=== PATIENT | female | born 1955 | race Caucasian/White ===

== ENCOUNTER 2024-10-27 02:43 | Emergency (ER) | payer OTHER ==
[~2024-10-27] VITALS: Ht 177.8 cm; Wt 111.1 kg
[2024-10-27] MEDS: ketOROlac 15MG/ML VIAL (15MG/ML) IV ONE (03:25)
[2024-10-27] MEDS: LACTATED RINGERS 1000ML 1,000 ML IV ONE (03:26)
[2024-10-27 03:28] LABS: BASOPHILS # (AUTO) 0.02 K/uL (0.00-0.20); BASOPHILS % (AUTO) 0.1 % (0.0-5.0); HEMATOCRIT 36.7 % (36-48); IMMATURE GRANULOCYTE ABSOLUTE 0.13 K/uL (0-1); LYMPHOCYTES % (AUTO) 6.4 % (21.0-51.0); MEAN CORPUSCULAR HEMOGLOBIN 30.3 pg (27.0-33.0); MEAN CORPUSCULAR HGB CONC 34.3 g/dL (32.0-36.0); MEAN CORPUSCULAR VOLUME 88.2 fL (79-99); MONOCYTES # (AUTO) 0.7 K/uL (0.1-1.0); MONOCYTES % (AUTO) 4.4 % (3.0-13.0); NEUTROPHILS % (AUTO) 88.3 % (40.0-77.0); PLATELET COUNT (AUTO) 289 K/uL (130-400); RED BLOOD CELL COUNT(AUTO) 4.16 MIL/uL (4.00-5.50); RED CELL DISTRIBUTION WIDTH 12.4 % (11.0-15.5); WHITE BLOOD COUNT (AUTO) 15.9 K/uL (4.8-10.8)
[2024-10-27] MEDS: hydroMORPHone 0.5 MG SYG (0.5MG/0.5ML) IVP ONE ×2 (03:30→05:31)
[2024-10-27 03:36] LABS: CREATININE 0.8 mg/dL (0.5-1.0); POTASSIUM 3.3 mmol/L (3.5-5.1)
[2024-10-27 04:21] LABS: WBC MORPHOLOGY CONSISTENT W/DIFF
[2024-10-27] MEDS ORDERED: [UNRECOGNIZED DRUG - CODE] PO (05:15)
--- NOTE | 2024-10-27 05:19 | ERN ---
General Chief Complaint: Multiple Complaints Stated Complaint: FEVER, NECK PAIN AFTER INJECTION Time Seen by MD: 02:46 History of Present Illness Initial Comments 69-year-old female who presents for headache and dizziness. Patient had a spinal injection earlier today in lower cervical upper thoracic spine by Dr. White in [place]. She reports that afterwards he has developed a headache, and mostly increases when she stands moves. She denies any vision changes or focal neurologic deficits. Allergies: Coded Allergies: No Known Allergies (Unverified Allergy, Unknown, 10/27/24) Home Meds Active Scripts Oxycodone HCl/Acetaminophen (Oxycodone-Acetaminophn 2.5-325) 2.5 Mg-325 Mg Tablet, 1 TAB PO TIDP PRN for pain for 3 Days, #10 TAB 0 Refills Prov:BRETT MOSES 10/27/24 Past Medical History Past Medical History: CHF, COPD, Diabetes-Type II, High Cholesterol Past Surgical History: Hysterectomy ROS Dictation CONSTITUTIONAL: No chills, no fever, no weakness, no diaphoresis, no malaise. HEAD/FACE: No signs of trauma. EENT: No eye pain, no blurred vision, no tearing, no double vision, no ear pain, no ear discharge, no nose pain, no nasal congestion, no throat pain, no throat swelling, no mouth pain. RESPIRATORY: No cough, no orthopnea, no SOB, no stridor, no wheezing. CARDIOVASCULAR: No chest pain, no edema, no palpitations, no syncope. GASTROINTESTINAL/ABDOMINAL: No abdominal pain, no constipation, no diarrhea, no nausea, no vomiting. GENITOURINARY: No abnormal discharge, no dysuria, no frequent urination, no hematuria. No complaints of pain in the genitals. MUSCULOSKELETAL: No back pain, no gout, no joint pain, no joint swelling, no muscle pain, no muscle stiffness, no neck pain. INTEGUMENTARY: No change in color, no change in hair/nails, no dryness, no lesion, no lumps, no rash. NEUROLOGICAL/PSYCH: Headache All Systems Negative, Except as Noted. Physical Exam Physical Exam Dictation VITAL SIGNS: Reviewed. GENERAL APPEARANCE: Alert, oriented x3, no acute distress, obese. HEAD AND FACE: Non-traumatic. EYES: PERRL, pink conjunctivas, eyelid no trauma, anterior chamber clear. EARS: Pinnas intact and no signs of trauma or erythema. Ear canals clear and no discharge. TMs no erythema. NOSE: No discharge, no bleeding. OROPHARYNX: Mouth normal, teeth no caries, tongue pink. Pharynx clear, no erythema. Tonsils no exudates, no abscesses noted. Mucous membrane moist. NECK: Supple, non-tender, no thyromegaly, no masses, no JVD, no bruits. BREAST: Deferred. CHEST: No tenderness, no crepitus, no paradoxical movement, no retractions. LUNGS: Clear, well-ventilated, symmetric, no rales, no wheezing, no rhonchi, no stridor, good breath sounds bilaterally. HEART: Regular rate, regular rhythm, no murmur, no gallops. VASCULAR: No peripheral edema. ABDOMEN: Soft, positive bowel sounds, nondistended, no guarding, nontender, no rebound, no masses no hepatomegaly, no splenomegaly, no Perkins's sign, no hernias. RECTAL: Deferred. GENITAL: Deferred. NEUROLOGICAL: Normal speech, gross motor function intact, gross sensory function intact. MUSCULOSKELETAL: Neck nontender, full range of motion, back nontender, full range of motion. EXTREMITIES: Nontender, full range of motion. SKIN: Color pink, dry, no turgor, no rash, no lacerations, no abrasions, no contusions. LYMPHATICS: Deferred. Results Laboratory and Microbiology Lab and Micro Result Laboratory Tests Test 10/27/24 03:21 White Blood Count 15.9 K/uL (4.8-10.8) H Red Blood Count 4.16 MIL/uL (4.00-5.50) Hemoglobin 12.6 g/dL (12.0-16.0) Hematocrit 36.7 % (36-48) Mean Corpuscular Volume 88.2 fL (79-99) Mean Corpuscular Hemoglobin 30.3 pg (27.0-33.0) Mean Corpuscular Hemoglobin Concent 34.3 g/dL (32.0-36.0) Red Cell Distribution Width 12.4 % (11.0-15.5) Platelet Count 289 K/uL (130-400) Mean Platelet Volume 9.0 fL (7.5-10.5) Immature Granulocyte % (Auto) 0.8 % (0-1) Neutrophils (%) (Auto) 88.3 % (40.0-77.0) H Lymphocytes (%) (Auto) 6.4 % (21.0-51.0) L Monocytes (%) (Auto) 4.4 % (3.0-13.0) Eosinophils (%) (Auto) 0.0 % (0.0-8.0) Basophils (%) (Auto) 0.1 % (0.0-5.0) Neutrophils # (Auto) 14.0 K/uL (1.8-7.7) H Lymphocytes # (Auto) 1.0 K/uL (1.0-4.8) Monocytes # (Auto) 0.7 K/uL (0.1-1.0) Eosinophils # (Auto) 0.00 K/uL (0.00-0.70) Basophils # (Auto) 0.02 K/uL (0.00-0.20) Absolute Immature Granulocyte (auto 0.13 K/uL (0-1) Nucleated Red Blood Cells 0.0 % (0.0-0.19) White Cell Morphology Comment CONSISTENT W/DIFF Sodium Level 140 mmol/L (136-145) Potassium Level 3.3 mmol/L (3.5-5.1) L Chloride Level 100 mmol/L (101-111) L Carbon Dioxide Level 32 mmol/L (21-32) Blood Urea Nitrogen 20 mg/dL (7-18) H Creatinine 0.8 mg/dL (0.5-1.0) Glomerular Filtration Rate Calc 80 mL/min (>90) Random Glucose 136 mg/dL (70-105) H Total Calcium 9.6 mg/dL (8.5-10.1) Total Creatine Kinase 46 U/L (21-232) Troponin I High Sensitivity 15.4 ng/L (4-50) MDM CC: Headache, dizziness Historian: Patient Comorbidities: Obesity, diabetes, COPD, CHF, hypertension, chronic neck pain Limitations by social determinants of health: None Differential diagnosis: Post-injection headache, complication, migraine, neurologic deficit, other Vital signs are stable Clinical exam shows cranial nerves intact in her normal neurologic examination. She does have some pain to the upper back/neck area where the injection was. I reviewed the injection site, there is no erythema signs of bleeding or any other major abnormalities. The labs show leukocytosis, suspect here with a steroid injection, no shift or bands, with a normal chemistry panel. CT head without contrast shows no acute bleeding free air or abnormalities Labs and imaging interpreted independently by me here in the emergency department. Treatment in ED: IV fluid, IV Dilaudid for pain, IV Toradol. On re-evaluation the patient's symptoms have improved. She is ambulatory p.o. tolerant she reports that her headache has greatly improved. I suspect the patient is having a post epidural headache. She had an injection earlier there was no signs of free air in the CT scan or any major abnormalities to the injection site. She is very stable on exam and her symptoms improved to pain medicine. Low suspicion for any life threats. No indication for further observation at this time since she is currently asymptomatic. Plan: We will DC with prescription for oxycodone and recommend PCP follow up. ED Course Orders Procedure Category Date Status Time Cardiac Panel LAB 10/27/24 Complete 03:12 Cbc With Differential LAB 10/27/24 Complete 03:12 Basic Metabolic Panel LAB 10/27/24 Complete 03:12 Lactated Ringers PHA 10/27/24 Complete 1000ml (Lactated 03:30 Ketorolac PHA 10/27/24 Complete Tromethamine 15mg/Ml 03:30 Hydromorphone 0.5mg PHA 10/27/24 Complete Syg (Dilaudid 0.5mg 03:30 Ct Head/Brain W/O CT 10/27/24 Taken Contrast 03:12 Hydromorphone 0.5mg PHA 10/27/24 Complete Syg (Dilaudid 0.5mg 05:30 Current Medications Medications (Trade) Dose Ordered Sig/Vlad Route PRN Reason Start Time Stop Time Status Last Admin Dose Admin Hydromorphone HCl (DiLAUDid 0.5MG INJ) 0.5 mg ONCE ONCE IVP 10/27/24 03:30 10/27/24 03:31 DC 10/27/24 03:30 Hydromorphone HCl (DiLAUDid 0.5MG INJ) 0.5 mg ONCE ONCE IVP 10/27/24 05:30 10/27/24 05:31 DC 10/27/24 05:31 Ketorolac Tromethamine (toRADol) 15 mg ONCE ONCE IV 10/27/24 03:30 10/27/24 03:31 DC 5/30/25 03:25 Lactated Ringer's 1,000 ml @ 0 mls/hr ONCE ONCE IV 10/27/24 03:30 10/27/24 03:31 DC 10/27/24 03:26 Vital Signs Date Time Temp Pulse Resp B/P (MAP) Pulse Ox O2 Delivery O2 Flow Rate FiO2 10/27/24 05:57 98.2 92 17 125/76 97 Room Air* 0 21 10/27/24 02:44 98.1 96 20 128/79 96 Room Air DX & DISP Disposition: Discharge Departure Impression: Primary Impression: Postspinal headache Condition: Stable Scripts Oxycodone HCl/Acetaminophen (Oxycodone-Acetaminophn 2.5-325) 2.5 Mg-325 Mg Tablet 1 TAB PO TIDP PRN for pain for 3 Days, #10 TAB 0 Refills Prov: BRETT MOSES DO 10/27/24 Additional Instructions: Your symptoms are most consistent with a post epidural injection headache. As we discussed, this is a common side effect of the procedure. Be sure to stay hydrated. Dehydration can lead to further headache. I have prescribed some oxycodone-acetaminophen tabs to use as needed for pain. You can also take [id number] ibuprofen. The headache should not last longer than a few days. If you continue with symptoms after a few days, I recommend follow up with her primary doctor. Referrals: SELF,REFERRAL BRETT MOSES DO October 27, 2024 05:19
[2024-10-27 05:57] VITALS: BP 125/76; PULSE 92; RESP 17; TEMP 98.3; O2SAT 97
--- NOTE | 2024-10-27 07:57 | HMCIMG ---
CT HEAD/BRAIN W/O CONTRAST HISTORY: Postop COMPARISON: None TECHNIQUE: Multiple sequential axial images of the head were obtained from the base of the skull through vertex. Patient was not given contrast through intravenous route. FINDINGS: The ventricles and extraventricular CSF spaces are dilated consistent with cerebral atrophy. Nonspecific white matter changes seen. There is no midline shift, mass effect or herniation. No acute intracranial bleed is seen. Visualized portion of the paranasal sinuses are grossly within normal limits. IMPRESSION: 1. No acute intracranial bleed is seen. 2. Atrophy with white matter changes. CT was performed with one or more following dose reduction techniques: automated exposure control, adjustment of the mA and kv according to patient's size, or use of a iterative reconstruction technique.
== END 2024-10-27 05:58 | disposition home or self-care (01) ==
LOC: EDH 02:43
DX: G97.1 Other reaction to spinal and lumbar puncture (principal); I50.9 Heart failure, unspecified; J44.9 Chronic obstructive pulmonary disease, unspecified; E11.9 Type 2 diabetes mellitus without complications; E66.9 Obesity, unspecified; Z90.710 Acquired absence of both cervix and uterus
CPT/HCPCS: 99285; 96374; 70450; 96375; 82550; 84484; 80048; 85025; 36415; 96376; J1885; J7120; J1171 ×2